=== PATIENT | female | born 1975 | race African-American/Black ===

== ENCOUNTER 2016-09-12 07:13 | Emergency (ER) | payer OTHER ==
[~2016-09-12] VITALS: Ht 167.6 cm; Wt 100.2 kg
[2016-09-12] MEDS ORDERED: ADIPEX-P37.5 MG PO (07:19)
[2016-09-12 07:47] LABS: HEMATOCRIT 34.6 % (36.0-46.0); MCH 26.7 PG (29.0-34.0); MCHC 32.1 G/DL (30.0-36.0); MCV 83.2 FL (83-99); MEAN PLAT.VOLUME 11.9 uM^3 (9.5-12.4); PLATELET COUNT 253 K/uL (156-360); RBC DIS.WIDTH-CV 13.6 % (11.8-14.6); RBC DIS.WIDTH-SD 40.1 % (39-53); RED BLOOD COUNT 4.16 M/uL (3.80-5.20)
[2016-09-12 08:19] LABS: ALKALINE PHOSPHATASE 79 IU/L (3-129); ANION GAP 4 MEQ/L (2-14); CHLORIDE 101 MEQ/L (99-109); GFR ESTIMATE (CALCULATED) > 59 mL/min/; GLUCOSE 127 mg/dL (70-99); LIPASE 10 U/L (1.0-51.0); SAMPLE HEMOLYSIS CHECK 3; SAMPLE ICTERIC CHECK 0; SAMPLE LIPEMIA CHECK 0; SODIUM 129 MEQ/L (136-147); TOTAL BILIRUBIN 0.4 MG/DL (0.0-1.0); UREA NITROGEN (BUN) 11 mg/dL (9-23)
[2016-09-12 08:26] LABS: POTASSIUM ND MEQ/L (3.7-5.4)
[2016-09-12 08:43] LABS: QUANTITATIVE HCG < 4.0 MIU/ML
[2016-09-12 08:50] LABS: ADD MIUA? NO; BILIRUBIN NEGATIVE; BLOOD NEGATIVE; COLOR YELLOW ((YELLOW)); GLUCOSE (STRIP) NEGATIVE; KETONES NEGATIVE; LEUKOCYTES NEGATIVE; NITRITE NEGATIVE; PH, URINE 7.5 (5-8); PROTEIN (STRIP) 30; SPECIFIC GRAVITY 1.027 (1.000-1.030); UCUL ADDED? NO; UROBILINOGEN 0.2 MG/DL (0.2-1.0)
[2016-09-12 09:11] LABS: POTASSIUM 4.5 MEQ/L (3.7-5.4)
[2016-09-12] MEDS ORDERED: ZOFRAN ODT4 MG PO (09:21)
[2016-09-12] MEDS ORDERED: ANTIVERT25 MG PO (09:21)
[2016-09-12 09:32] LABS: SODIUM 132 MEQ/L (136-147)
[2016-09-12 09:50] VITALS: BP 104/74
== END 2016-09-12 09:48 | disposition home or self-care (01) ==
LOC: EME 07:13
PROVIDERS: Nurse Practitioner Family
DX: H81.10 Benign paroxysmal vertigo, unspecified ear (principal); E87.1 Hypo-osmolality and hyponatremia; R11.0 Nausea; Z98.84 Bariatric surgery status
CPT/HCPCS: 80053; 81003; 83690; 84295; 84702; 84999; 85027; 99281; 99285; J2405; J7030

== ENCOUNTER 2018-02-15 19:23 | Emergency (ER) | payer OTHER ==
[~2018-02-15] VITALS: Ht 167.6 cm; Wt 111.4 kg
[~2018-02-15 19:23] MED LIST: ADIPEX-P37.5 MG PO; ANTIVERT25 MG PO; ZOFRAN ODT4 MG PO
[2018-02-15 21:19] LABS: HEMATOCRIT 36.8 % (36.0-46.0); HEMOGLOBIN 11.7 G/DL (11.9-15.5); MCH 25.9 PG (29.0-34.0); MCHC 31.8 G/DL (30.0-36.0); MCV 81.6 FL (83-99); RBC DIS.WIDTH-CV 16.3 % (11.8-14.6); RBC DIS.WIDTH-SD 48.5 % (39-53); RED BLOOD COUNT 4.51 M/uL (3.80-5.20); WHITE BLOOD COUNT 11.9 K/uL (4.1-10.2)
[2018-02-15 21:33] LABS: CHLORIDE 107 mEq/L (99-109); POTASSIUM 4.7 mEq/L (3.7-5.4); SODIUM 138 mEq/L (136-147)
[2018-02-15 21:34] LABS: GLUCOSE 87 mg/dL (70-99)
[2018-02-15 21:38] LABS: CREATININE 0.8 mg/dL (0.6-1.3); GFR ESTIMATE (CALCULATED) > 59 mL/min/
[2018-02-15 21:39] LABS: UREA NITROGEN (BUN) 11 mg/dL (9-23)
[2018-02-15 21:43] LABS: TROP-I INTERPRETATION NEGATIVE; TROPONIN-I < 0.01 ng/mL (0.0-0.30)
[2018-02-15] MEDS ORDERED: MOTRIN800 MG PO (22:17)
[2018-02-15] MEDS ORDERED: VOLTAREN 1% GE100 GM TP (22:17)
[2018-02-15] MEDS ORDERED: BACLOFEN10 MG PO (22:17)
[2018-02-15] MEDS ORDERED: LIDODERM 5% P1 PATCH TD (22:17)
[2018-02-15 22:52] VITALS: BP 139/87
[2018-02-15 23:04] LABS: PLAT.SUFFICIENCY ADEQUATE; PLATELET COUNT 300 K/uL (156-360)
== END 2018-02-15 22:55 | disposition home or self-care (01) ==
LOC: EME 19:23
PROVIDERS: Nurse Practitioner Family
DX: S16.1XXA Strain of muscle, fascia and tendon at neck level, initial encounter (principal); M54.6 Pain in thoracic spine; R07.2 Precordial pain; V43.52XA Car driver injured in collision with other type car in traffic accident, initial encounter; Y92.411 Interstate highway as the place of occurrence of the external cause; Z98.84 Bariatric surgery status; Z90.13 Acquired absence of bilateral breasts and nipples
CPT/HCPCS: 71046; 72040; 80048; 84484; 85027; 93005; 99281; 99284; J1885